=== PATIENT | female | born 1970 | race Caucasian/White ===

== ENCOUNTER 2017-06-24 09:46 | Inpatient (IN) | payer SELFPAY ==
[2017-06-24] MEDS: ONDANSETRON PF 4 MG/2 ML VIAL. IV (10:30)
[2017-06-24] MEDS: IV NORMAL SALINE 1000ML BAG 1,000 ML IV ×2 (10:30→12:48)
[2017-06-24 10:37] LABS: BASO % 0 % (0-3); EOS % 0 % (0-3); HEMATOCRIT 45.2 % (36.0-47.0); HEMOGLOBIN 15.3 g/dL (12.0-15.5); LYMPH # 0.6 x10^3/uL (1.0-4.8); LYMPH % 6 % (24-48); MEAN CORPUSCULAR HEMOGLOBIN 34 pg (25-35); MEAN CORPUSCULAR HGB CONC 34 g/dL (31-37); MEAN CORPUSCULAR VOLUME 100 fL (79-100); MONO # 0.8 x10^3/uL (0.0-1.1); MONO % 8 % (0-9); NEUT # 8.3 x10^3uL (1.8-7.7); NEUT % 85 % (31-73); PLATELET COUNT 189 x10^3/uL (140-400); RED CELL DISTRIBUTION WIDTH 12.9 % (11.5-14.5); WHITE BLOOD COUNT 9.7 x10^3/uL (4.0-11.0)
[2017-06-24 10:44] LABS: ANION GAP 32 (6-14); BLOOD UREA NITROGEN 9 mg/dL (7-20); BUN/CREATININE RATIO 10 (6-20); CALCIUM 9.2 mg/dL (8.5-10.1); CARBON DIOXIDE 16 mmol/L (21-32); CHLORIDE 92 mmol/L (98-107); CREATININE 0.9 mg/dL (0.6-1.0); GFR 67.4; GLUCOSE 122 mg/dL (70-99); SODIUM 140 mmol/L (136-145)
[2017-06-24 10:45] LABS: ADD MAN DIFF? YES
[2017-06-24 10:53] LABS: ALBUMIN 4.4 g/dL (3.4-5.0); ALBUMIN/GLOBULIN RATIO 1.2 (1.0-1.7); ALK PHOS 108 U/L (46-116); ALT (SGPT) 173 U/L (14-59); AST (SGOT) 102 U/L (15-37); LIPASE 141 U/L (73-393); TOTAL BILIRUBIN 0.9 mg/dL (0.2-1.0); TOTAL PROTEIN 8.2 g/dL (6.4-8.2)
[2017-06-24 10:56] LABS: TROPONINI < 0.017 ng/mL (0.000-0.055)
[2017-06-24] MEDS ORDERED: ONDANSETRON PF 4 MG/2 ML VIAL. IV ×2 (11:45→15:15)
[2017-06-24] MEDS ORDERED: ACETAMINOPHEN 325 MG TABLET. PO (11:45)
[2017-06-24] MEDS ORDERED: MORPHINE SULFATE 4 MG/ML DISP.SYRIN. IV ×2 (12:30→15:15)
[2017-06-24 12:48] LABS: % ATYL 1 % (0-0); % BANDS 2 % (0-9); % LYMPHS 4 % (24-48); % MONOS 3 % (0-10); % SEGS 90 % (35-66); PLT ESTIMATE ADEQUATE (ADEQUATE)
[2017-06-24] MEDS: diphenhydrAMINE 50 MG/ML VIAL IVP ×3 (12:48→21:08)
[2017-06-24 13:00] LABS: BILIRUBIN,URINE NEGATIVE (NEG); CLARITY,URINE CLEAR; COLOR,URINE YELLOW; GLUCOSE,URINE NEGATIVE (NEG); NITRITE,URINE NEGATIVE (NEG); PROTEIN,URINE NEGATIVE (NEG-TRACE); UROBILINOGEN,URINE 0.2 mg/dL (0.2 mg/dL)
[2017-06-24 13:26] LABS: BACTERIA,URINE FEW /HPF (0-FEW); RBC,URINE 0 /HPF (0-2); SQUAMOUS EPITHELIAL CELL,UR MOD /LPF; WBC,URINE 0 /HPF (0-4)
[2017-06-24] MEDS: IV RINGERS,LACTATED 1000ML 1,000 ML IV ×3 (14:42→21:08)
[2017-06-24] MEDS ORDERED: PROCHLORPERAZINE 10 MG/2 ML VIAL. IV (15:15)
[2017-06-24] MEDS ORDERED: LIDOCAINE 1% PF 2 ML VIAL. ID (15:15)
[2017-06-24] MEDS ORDERED: fentaNYL PF VIAL 100 MCG/2 ML VIAL IV ×2 (15:15)
[2017-06-24] MEDS ORDERED: PROPOFOL 0 ML IV (15:49)
[2017-06-24] MEDS ORDERED: LIDOCAINE 2% PF Vial for OR 5 ML VIAL. (15:49)
[2017-06-24] MEDS ORDERED: PROPOFOL 20 ML IV ×2 (16:05→16:10)
[2017-06-24] MEDS: ACETAMINOPHEN 650 MG/20.3 ML SOLUTION. PO (17:15)
[2017-06-24] MEDS: SUCRALFATE 1 GM/10 ML ORAL.SUSP. PO ×2 (17:16→21:07)
[2017-06-24] MEDS: LIDO:MAALOX 1:1 20 ML SINGLE DOSE. PO ×2 (17:16→23:17)
[2017-06-24] MEDS: PANTOPRAZOLE IV PUSH 40 MG VIAL. IVP (17:27)
[2017-06-25 04:26] LABS: ADD MAN DIFF? NO
[2017-06-25 04:45] LABS: BASO % 0 % (0-3); EOS % 0 % (0-3); HEMATOCRIT 35.9 % (36.0-47.0); HEMOGLOBIN 12.4 g/dL (12.0-15.5); LYMPH # 1.6 x10^3/uL (1.0-4.8); LYMPH % 26 % (24-48); MEAN CORPUSCULAR HEMOGLOBIN 35 pg (25-35); MEAN CORPUSCULAR HGB CONC 35 g/dL (31-37); MEAN CORPUSCULAR VOLUME 101 fL (79-100); MONO # 1.1 x10^3/uL (0.0-1.1); MONO % 18 % (0-9); NEUT # 3.3 x10^3uL (1.8-7.7); NEUT % 55 % (31-73); PLATELET COUNT 135 x10^3/uL (140-400); RED BLOOD COUNT 3.56 x10^6/uL (3.50-5.40); RED CELL DISTRIBUTION WIDTH 13.2 % (11.5-14.5); WHITE BLOOD COUNT 5.9 x10^3/uL (4.0-11.0)
[2017-06-25 05:08] LABS: LIPASE 196 U/L (73-393)
[2017-06-25 05:11] LABS: ANION GAP 7 (6-14); BLOOD UREA NITROGEN 10 mg/dL (7-20); CALCIUM 8.5 mg/dL (8.5-10.1); CARBON DIOXIDE 29 mmol/L (21-32); CHLORIDE 101 mmol/L (98-107); CREATININE 0.7 mg/dL (0.6-1.0); GFR 90.1; GLUCOSE 68 mg/dL (70-99); POTASSIUM 3.6 mmol/L (3.5-5.1); SODIUM 137 mmol/L (136-145)
[2017-06-25 05:19] LABS: ALBUMIN 3.3 g/dL (3.4-5.0); ALK PHOS 76 U/L (46-116); ALT (SGPT) 107 U/L (14-59); AST (SGOT) 58 U/L (15-37); DIRECT BILIRUBIN 0.5 mg/dL (0.0-0.2); TOTAL BILIRUBIN 1.2 mg/dL (0.2-1.0); TOTAL PROTEIN 6.1 g/dL (6.4-8.2)
[2017-06-25] MEDS: SUCRALFATE 1 GM/10 ML ORAL.SUSP. PO ×4 (05:42→20:32)
[2017-06-25] MEDS: LIDO:MAALOX 1:1 20 ML SINGLE DOSE. PO ×2 (05:43→11:27)
[2017-06-25] MEDS: PANTOPRAZOLE IV PUSH 40 MG VIAL. IVP ×2 (05:43→17:32)
[2017-06-25] MEDS: diphenhydrAMINE 50 MG/ML VIAL IVP ×2 (09:54→21:44)
[2017-06-25] MEDS ORDERED: ACETAMINOPHEN 160 MG/5 ML ORAL.SUSP. PO (11:15)
[2017-06-25] MEDS ORDERED: ACETAMINOPHEN 650 MG/20.3 ML SOLUTION. PO (11:15)
[2017-06-25] MEDS: ACETAMINOPHEN 650 MG/20.3 ML SOLUTION. PO ×2 (11:27→20:31)
[2017-06-25] MEDS: methylPREDNISolone SOD SUCC PF 125 MG/2 ML VIAL. IV (11:27)
[2017-06-25] MEDS: ENALAPRILAT 1.25 MG/ML VIAL. IV (20:31)
[2017-06-26 05:16] LABS: HEMATOCRIT 35.3 % (36.0-47.0); HEMOGLOBIN 12.2 g/dL (12.0-15.5); MEAN CORPUSCULAR HEMOGLOBIN 35 pg (25-35); MEAN CORPUSCULAR HGB CONC 35 g/dL (31-37); MEAN CORPUSCULAR VOLUME 101 fL (79-100); PLATELET COUNT 124 x10^3/uL (140-400); RED CELL DISTRIBUTION WIDTH 12.7 % (11.5-14.5)
[2017-06-26 05:34] LABS: ALBUMIN 3.1 g/dL (3.4-5.0); ALK PHOS 86 U/L (46-116); ALT (SGPT) 118 U/L (14-59); ANION GAP 8 (6-14); AST (SGOT) 142 U/L (15-37); BLOOD UREA NITROGEN 6 mg/dL (7-20); BUN/CREATININE RATIO 10 (6-20); CALCIUM 8.8 mg/dL (8.5-10.1); CARBON DIOXIDE 28 mmol/L (21-32); CHLORIDE 102 mmol/L (98-107); CREATININE 0.6 mg/dL (0.6-1.0); GFR 107.6; GLUCOSE 127 mg/dL (70-99); POTASSIUM 3.3 mmol/L (3.5-5.1); SODIUM 138 mmol/L (136-145); TOTAL BILIRUBIN 0.9 mg/dL (0.2-1.0); TOTAL PROTEIN 6.1 g/dL (6.4-8.2)
[2017-06-26] MEDS: PANTOPRAZOLE IV PUSH 40 MG VIAL. IVP (06:36)
[2017-06-26] MEDS: ENALAPRILAT 1.25 MG/ML VIAL. IV ×3 (06:37→11:39)
[2017-06-26] MEDS: SUCRALFATE 1 GM/10 ML ORAL.SUSP. PO ×2 (07:56→11:37)
[2017-06-26] MEDS: POTASSIUM CHLORIDE 20 MEQ TABLET.ER. PO (09:40)
[2017-06-28 14:31] LABS: C 1 ESTERASE INHIBIT 30 mg/dL (21-39)
== END 2017-06-26 14:40 | disposition home or self-care (01) | DRG 382 ==
LOC: ER 09:46 → 4 NORTH 10:55
PROC: 0D758ZZ Dilation of Esophagus, Via Natural or Artificial Opening Endoscopic (ICD-10-PCS; principal; 2017-06-24 15:30)
DX: K22.10 Ulcer of esophagus without bleeding (principal); K76.0 Fatty (change of) liver, not elsewhere classified; K22.2 Esophageal obstruction; R13.10 Dysphagia, unspecified; E86.0 Dehydration; K21.0 Gastro-esophageal reflux disease with esophagitis; K29.70 Gastritis, unspecified, without bleeding; F41.9 Anxiety disorder, unspecified; I10 Essential (primary) hypertension; K44.9 Diaphragmatic hernia without obstruction or gangrene; Z79.899 Other long term (current) drug therapy; Z82.49 Family history of ischemic heart disease and other diseases of the circulatory system; Z87.19 Personal history of other diseases of the digestive system
CPT/HCPCS: 36415; 71045; 76700; 80048; 80053; 80076; 81001; 83690; 84484; 85007; 85025; 85027; 86161; 93005; 96374; 99285; 99285-25; C9113; J1200; J2060; J2405; J2704; J2930; J7030; J7120

== ENCOUNTER 2018-03-29 08:43 | Emergency (ER) | payer SELFPAY ==
[~2018-03-29] VITALS: Ht 162.6 cm; Wt 49.9 kg
[~2018-03-29 08:43] MED LIST: METO-239 PO; OMEP20TA63 PO; SUCR1ORA5 PO
[2018-03-29 09:27] LABS: BASO % 0 % (0-3); EOS # 0.1 x10^3/uL (0.0-0.7); EOS % 2 % (0-3); HEMATOCRIT 42.1 % (36.0-47.0); HEMOGLOBIN 14.3 g/dL (12.0-15.5); LYMPH # 1.2 x10^3/uL (1.0-4.8); LYMPH % 24 % (24-48); MEAN CORPUSCULAR HEMOGLOBIN 34 pg (25-35); MEAN CORPUSCULAR HGB CONC 34 g/dL (31-37); MEAN CORPUSCULAR VOLUME 101 fL (79-100); MONO # 0.7 x10^3/uL (0.0-1.1); MONO % 14 % (0-9); NEUT % 60 % (31-73); PLATELET COUNT 154 x10^3/uL (140-400); RED BLOOD COUNT 4.16 x10^6/uL (3.50-5.40); RED CELL DISTRIBUTION WIDTH 12.8 % (11.5-14.5); WHITE BLOOD COUNT 5.1 x10^3/uL (4.0-11.0)
[2018-03-29] MEDS ORDERED: cloNIDine HCL 0.1 MG TABLET PO ONE (09:30)
[2018-03-29 09:42] LABS: CALCIUM 8.9 mg/dL (8.5-10.1); CREATININE 0.6 mg/dL (0.6-1.0); GFR 107.2; POTASSIUM 3.8 mmol/L (3.5-5.1)
[2018-03-29] MEDS ORDERED: LABETALOL 20 MG/4 ML DISP.SYRIN. IVP ONE (10:15)
[2018-03-29] MEDS ORDERED: ONDANSETRON PF 4 MG/2 ML VIAL. IV ONE (10:45)
[2018-03-29 11:12] VITALS: BP 100/63
[2018-03-29 11:15] LABS: BILIRUBIN,URINE NEGATIVE (NEG); CLARITY,URINE CLEAR; COLOR,URINE YELLOW; NITRITE,URINE NEGATIVE (NEG); PROTEIN,URINE NEGATIVE (NEG-TRACE)
[2018-03-29 11:21] LABS: SQUAMOUS EPITHELIAL CELL,UR MOD /LPF
[2018-03-29 11:22] LABS: BACTERIA,URINE MODERATE /HPF (0-FEW); BARBITURATES NEG (NEG); BENZODIAZEPINES NEG (NEG); CANNABINOIDS NEG (NEG); COCAINE NEG (NEG); METHADONE NEG (NEG); OPIATES NEG (NEG); PHENCYCLIDINE NEG (NEG); RBC,URINE OCC /HPF (0-2)
[2018-03-29 11:27] LABS: AMPHETAMINE/METHAMPHETAMINE NEG (NEG)
--- NOTE | 2018-03-29 11:32 | PHYS DOC ---
Past Medical History Past Medical History: GERD, Hypertension Additional Past Medical Histor: hiatal hernia and ulcer and esophageal stricture Past Surgical History: No Surgical History Alcohol Use: Occasionally Drug Use: None Adult General Chief Complaint Chief Complaint: NOSEBLEED HPI HPI Patient is a 47 year old emailed with history of hiatal hernia, GERD, and hypertension who presents from her PCPs office for ports of intermittent nosebleed for the past 3 days, dizziness, and elevated blood pressure. Nosebleed resolved prior to ED arrival. Patient is not on aspirin or anticoagulation therapy. Patient's blood pressure prior to her ED arrival was 180s over 120s. The patient's blood pressure remains elevated in the emergency department. Patient states she is compliant with blood pressure medication but does not recall name or dose medications. She was last prescribed medication from this facility a months ago and is unaware of her baseline blood pressure and has not seen her doctor for this complaint. Denies blurred vision, chest pain, shortness breath, extremity weakness or loss of sensation, decreased urinary output. No increased leg swelling. No other acute symptoms or complaints [] Review of Systems Review of Systems Review symptoms as per history of present illness. All other review symptoms are negative. All other systems were reviewed and found to be within normal limits, except as documented in this note. Current Medications Current Medications Current Medications Medications (Trade) Dose Ordered Sig/Abbi Start Time Stop Time Status Last Admin Dose Admin Clonidine HCl (Catapres) 0.2 mg 1X ONCE 03/29/18 09:30 03/29/18 09:31 DC 03/29/18 09:30 0.2 MG Labetalol HCl (Normodyne Iv Push) 20 mg 1X ONCE 03/29/18 10:15 03/29/18 10:16 DC 03/29/18 10:17 20 MG Ondansetron HCl (Zofran) 4 mg 1X ONCE 03/29/18 10:45 03/29/18 10:46 DC 03/29/18 10:36 4 MG Allergies Allergies Allergies Coded Allergies Type Severity Reaction Last Updated Verified No Known Drug Allergies 06/24/17 No Physical Exam Physical Exam Constitutional: Well developed, well nourished, no acute distress, non-toxic appearance. [] HENT: Normocephalic, atraumatic, bilateral external ears normal, oropharynx moist, no oral exudates, nose, no epistaxis. [] Eyes: PERRLA, EOMI, conjunctiva normal, no discharge. [] Neck: Normal range of motion. [] Cardiovascular:Heart rate regular rhythm, no murmur [] Lungs & Thorax: Bilateral breath sounds clear to auscultation [] Abdomen: Bowel sounds normal, soft, no tenderness, no masses, no pulsatile masses. [] Skin: Warm, dry, no erythema, no rash. [] Back: No tenderness. [] Extremities: No tenderness, no cyanosis, no clubbing, ROM intact, no edema. [] Neurologic: Alert and oriented X 3, normal motor function, normal sensory function, no focal deficits noted. [] Psychologic: Affect normal, judgement normal, mood normal. [] Current Patient Data Vital Signs Vital Signs Date Time Temp Pulse Resp B/P (MAP) Pulse Ox O2 Delivery O2 Flow Rate FiO2 03/29/18 11:12 100/63 (75) 03/29/18 10:38 77 03/29/18 08:57 98.6 16 97 Room Air 98.6 Lab Values Laboratory Tests Test 03/29/18 09:20 03/29/18 11:10 White Blood Count 5.1 x10^3/uL (4.0-11.0) Red Blood Count 4.16 x10^6/uL (3.50-5.40) Hemoglobin 14.3 g/dL (12.0-15.5) Hematocrit 42.1 % (36.0-47.0) Mean Corpuscular Volume 101 fL (79-100) H Mean Corpuscular Hemoglobin 34 pg (25-35) Mean Corpuscular Hemoglobin Concent 34 g/dL (31-37) Red Cell Distribution Width 12.8 % (11.5-14.5) Platelet Count 154 x10^3/uL (140-400) Neutrophils (%) (Auto) 60 % (31-73) Lymphocytes (%) (Auto) 24 % (24-48) Monocytes (%) (Auto) 14 % (0-9) H Eosinophils (%) (Auto) 2 % (0-3) Basophils (%) (Auto) 0 % (0-3) Neutrophils # (Auto) 3.0 x10^3uL (1.8-7.7) Lymphocytes # (Auto) 1.2 x10^3/uL (1.0-4.8) Monocytes # (Auto) 0.7 x10^3/uL (0.0-1.1) Eosinophils # (Auto) 0.1 x10^3/uL (0.0-0.7) Basophils # (Auto) 0.0 x10^3/uL (0.0-0.2) Sodium Level 138 mmol/L (136-145) Potassium Level 3.8 mmol/L (3.5-5.1) Chloride Level 99 mmol/L (98-107) Carbon Dioxide Level 26 mmol/L (21-32) Anion Gap 13 (6-14) Blood Urea Nitrogen 8 mg/dL (7-20) Creatinine 0.6 mg/dL (0.6-1.0) Estimated GFR (Cockcroft-Gault) 107.2 Glucose Level 97 mg/dL (70-99) Calcium Level 8.9 mg/dL (8.5-10.1) Urine Collection Type Unknown Urine Color Yellow Urine Clarity Clear Urine pH 6.0 Urine Specific Bells 1.020 Urine Protein Negative mg/dL (NEG-TRACE) Urine Glucose (UA) Negative mg/dL (NEG) Urine Ketones (Stick) Negative mg/dL (NEG) Urine Blood Negative (NEG) Urine Nitrite Negative (NEG) Urine Bilirubin Negative (NEG) Urine Urobilinogen Dipstick 1.0 mg/dL (0.2 mg/dL) Urine Leukocyte Esterase Small (NEG) Urine RBC Occ /HPF (0-2) Urine WBC 5-10 /HPF (0-4) Urine Squamous Epithelial Cells Mod /LPF Urine Bacteria Moderate /HPF (0-FEW) Urine Mucus Slight /LPF Urine Opiates Screen Neg (NEG) Urine Methadone Screen Neg (NEG) Urine Barbiturates Neg (NEG) Urine Phencyclidine Screen Neg (NEG) Urine Amphetamine/Methamphetamine Neg (NEG) Urine Benzodiazepines Screen Neg (NEG) Urine Cocaine Screen Neg (NEG) Urine Cannabinoids Screen Neg (NEG) Urine Ethyl Alcohol Pos (NEG) Laboratory Tests 03/29/18 09:20 Laboratory Tests 03/29/18 09:20 EKG EKG ] Radiology/Procedures Radiology/Procedures [] Course & Med Decision Making Course & Med Decision Making Pertinent Labs and Imaging studies reviewed. (See chart for details) [Bleeding resolved prior to ED arrival. Initially, blood pressure remained elevated 180s over 110s. Clonidine given with limited effect. Patient then received 20 mg of IV labetalol and experienced a brief self-limited hypotensive episode associated with nausea without vomiting. No loss of consciousness. Patient was monitored her until blood pressure improved she felt well. Patient will be discharged home with instructions to contact her PCP today for further structures and management of blood pressure. Dragon Disclaimer Dragon Disclaimer This electronic medical record was generated, in whole or in part, using a voice recognition dictation system. Departure Departure Impression: Primary Impression: Accelerated hypertension Disposition: 01 HOME, SELF-CARE Condition: GOOD Referrals: DEEPA THOMAS DIETARY AIDE TEACHER (PCP) Patient Instructions: Hypertension, [id number] Additional Instructions: Please check and record daily blood pressures. Call your PCP today for further instructions and management of blood pressure. Use Afrin nasal spray as needed for treatment of nosebleed. LUKE LIGHT DO Mar 29, 2018 11:32
== END 2018-03-29 12:17 | disposition home or self-care (01) ==
LOC: ER 08:43
DX: I10 Essential (primary) hypertension (principal); K21.9 Gastro-esophageal reflux disease without esophagitis
CPT/HCPCS: 36415; 80048; 80307; 81001; 85025; 87086; 96374; 96375; 99283; J2405; J3490

== ENCOUNTER 2020-05-21 05:25 | Emergency (ER) | payer OTHER ==
[~2020-05-21] VITALS: Ht 162.6 cm; Wt 50.0 kg
[2020-05-21] MEDS ORDERED: OXYMETAZOLINE 0.05% NASAL SPRAY 30ML BOTTLE. NS ONE (06:00)
[2020-05-21] MEDS ORDERED: cloNIDine HCL 0.1 MG TABLET PO ONE (06:00)
--- NOTE | 2020-05-21 06:11 | PHYS DOC ---
Past Medical History Past Medical History: GERD, Hypertension Additional Past Medical Histor: hiatal hernia and ulcer and esophageal stricture Past Medical History Eosinophilic esophagitis, Gomez's esophagus (DEMI MORRISSEY DO) Past Surgical History: No Surgical History (DEMI MORRISSEY DO) Smoking Status: Never Smoker Alcohol Use: Heavy Drug Use: None (DEMI MORRISSEY DO) General Adult EDM: Chief Complaint: NOSEBLEED HPI: HPI: 49-year-old female presents with report of left-sided epistaxis patient since 29. Patient reports history of frequent nosebleeds. Patient also reports history of hypertension. Patient reports she was also recently seen at urgent care who adjusted some of her blood pressure medications. Denies trauma. Denies dizziness or lightheadedness. Denies use of blood thinners. (DEMI MORRISSEY DO) Review of Systems: Review of Systems: Constitutional: Denies fever or chills Eyes: Denies redness or eye pain HENT: Reports epistaxis Respiratory: Denies cough or shortness of breath Cardiovascular: Denies chest pain or palpitations GI: Denies abdominal pain, nausea, or vomiting : Denies dysuria or hematuria Musculoskeletal: Denies back pain or joint pain Integument: Denies rash or skin lesions Neurologic: Denies headache, dizziness or lightheadedness Complete systems were reviewed and found to be within normal limits, except as documented in this note. (DEMI MORRISSEY DO) Heart Score: C/O Chest Pain: N/A (DEMI MORRISSEY DO) C/O Chest Pain: N/A (JANELLE HORTON DO) Current Medications: Current Medications Medications (Trade) Dose Ordered Sig/Abbi Start Time Stop Time Status Last Admin Dose Admin Clonidine HCl (Catapres) 0.1 mg 1X ONCE 05/21/20 06:00 05/21/20 06:01 DC Oxymetazoline HCl (Afrin) 2 spray 1X ONCE 05/21/20 06:00 05/21/20 06:01 DC (DEMI MORRISSEY DO) Allergies: Allergies: Allergies Coded Allergies Type Severity Reaction Last Updated Verified No Known Drug Allergies 06/24/17 No (DEMI MORRISSEY DO) Physical Exam: PE: Constitutional: Well developed, well nourished, no acute distress, non-toxic appearance HENT: Normocephalic, atraumatic, acute epistaxis from left nare Eyes: Conjunctiva normal, no discharge Neck: Normal range of motion, supple Lungs & Thorax: No respiratory distress, equal chest rise and fall Skin: Warm, dry, no erythema, no rash Extremities: No tenderness, ROM intact, no edema Neurologic: Alert and oriented X 3, no focal deficits noted Psychologic: Affect normal, judgment normal (DEMI MORRISSEY DO) Current Patient Data: Vital Signs: Vital Signs Date Time Temp Pulse Resp B/P (MAP) Pulse Ox O2 Delivery O2 Flow Rate FiO2 05/21/20 05:45 97.9 111 20 169/118 (135) 94 Room Air 97.9 (DEMI MORRISSEY DO) EKG: EKG: [] (DEMI MORRISSEY DO) Radiology/Procedures: Radiology/Procedures: [] (DEMI MORRISSEY DO) Course & Med Decision Making: Course & Med Decision Making Patient with frequent nosebleeds presents with uncontrollable nosebleed since 0030 this morning. Denies use of blood thinners. Hypertension noted. Clonidine 0.1 mg p.o. provided. Afrin utilized with nasal clamp. Signout given to Dr. Horton for further evaluation and final disposition. If patient with resolution of epistaxis, patient will be sent home with clonidine as needed and instructions to follow closely with her PCP for further adjustment of her blood pressure medication. Discussed current findings and plan with patient and family, who acknowledge understanding and agreement. (DEMI MORRISSEY DO) Course & Med Decision Making Patient blood pressure improved, no longer had any bleeding from her nares.. Patient was discharged home in stable condition (JANELLE HORTON DO) Dragon Disclaimer: Eleuterio Disclaimer: This electronic medical record was generated, in whole or in part, using a voice recognition dictation system. (DEMI MORRISSEY DO) Departure Departure Impression: Primary Impression: Epistaxis Additional Impression: Hypertension Qualified Codes: I10 - Essential (primary) hypertension Disposition: 01 DC HOME SELF CARE/HOMELESS Condition: IMPROVED Referrals: DEEPA THOMAS HOTEL CUSTODIAN (PCP) Patient Instructions: Hypertension, [id number], Nosebleed, [id number] Additional Instructions: For further bleeding. Clear nostril of any blood clots. Use Afrin 2 sprays to each nostril and apply nasal clamp for 15 mins. Remove clamp. If bleeding continues then repeat x 2 rounds. Each round with 2 sprays of Afrin to each nostril and clamp for 15 mins. If after total of 6 sprays to each nostril and 45mins of nasal clamping, if bleeding continues please present to ED. USE humidifier at night when you are sleeping.l Scripts Clonidine Hcl (CLONIDINE HCL) 0.1 Mg Tablet 0.1 MG PO BID PRN for ELEVATED BP, SEE COMMENTS, #14 TAB Take for systolic (upper blood pressure) greater than 175 and/or diastolic (lower blood pressure) greather than 105. Prov: DEMI MORRISSEY DO 05/21/20 DEMI MORRISSEY DO May 21, 2020 06:11 JANELLE HORTON DO May 21, 2020 07:10
[2020-05-21] MEDS ORDERED: CLON0.1T PO (06:27)
[2020-05-21 07:08] VITALS: BP 152/101
== END 2020-05-21 07:15 | disposition home or self-care (01) ==
LOC: ER 05:25
DX: R04.0 Epistaxis (principal); I10 Essential (primary) hypertension; K21.9 Gastro-esophageal reflux disease without esophagitis; Z98.890 Other specified postprocedural states; F10.10 Alcohol abuse, uncomplicated
CPT/HCPCS: 99283

== ENCOUNTER → 2020-12-08 | Outpatient (CLI) | payer OTHER ==
[2020-08-25 11:00] VITALS: BP 119/86
[~2020-12-08] MED LIST changes: +ASPI1TAB31 PO; +CLON0.1T PO; +PANT40TA77 PO; +RABE20TA18 PO
--- NOTE | 2020-12-08 10:36 | KCIC ---
EXAMINATION: CT MAXILLOFACIAL WITHOUT CONTRAST CLINICAL HISTORY: DEVIATED SEPTUM, CHRONIC SINUSITIS. Congestion, seasonal allergies. Technique: Spiral high resolution axial unenhanced images were obtained through the paranasal sinuses with sagittal and coronal planar reconstructions. CT Dose Reduction Employed: One or more of the following individualized dose reduction techniques wer e utilized for this examination: 1. Automated exposure control 2. Adjustment of the mA and/or kV ac cording to patient size 3. Use of iterative reconstruction technique. COMPARISON: None FINDINGS: Soft Tissues: No significant superficial soft tissue swelling. Facial Bones: No evidence of acute fracture or destructive osseous lesion. Orbits: No evidence of acute orbital fracture. Globes are intact. Soft tissue planes of the orbits ma intained. Paranasal Sinuses: Paranasal sinuses and mastoids clear. Other: Nasal mucosal thickening. Slight nasal septal deviation to the left. IMPRESSION: Nasal mucosal thickening with clear paranasal sinuses. Slight nasal septal deviation to the left. Electronically signed by: Mikel Roberson DO (12/08/2020 10:33 AM) MALINI
== END ==
LOC: KCIC CT 09:49
PROVIDERS: ATTEND Family Medicine
DX: J34.2 Deviated nasal septum (principal); J32.0 Chronic maxillary sinusitis
CPT/HCPCS: 70486

== ENCOUNTER 2021-01-21 06:11 | Observation (INO) | payer OTHER ==
[~2021-01-21] VITALS: Ht 165.1 cm; Wt 50.3 kg
[~2021-01-21 06:11] MED LIST changes: +HYDROmorphone 2 MG/ML VIAL IVP PRN; +MULT-121 PO; +MULT-684 PO; +OMEP20CA16 PO; +PROCHLORPERAZINE 10 MG/2 ML VIAL. IVP PRN; +ceFAZolin SODIUM IV Push 1 GM VIAL. IVP PRN; +fentaNYL PF VIAL 100 MCG/2 ML VIAL IVP PRN
[2021-01-21] MEDS ORDERED: PROPOFOL 10 MG/ML (20ML) VIAL. IV ONE (06:23)
[2021-01-21] MEDS ORDERED: LIDOCAINE 2% PF 5 ML VIAL. ONE (06:23)
[2021-01-21] MEDS ORDERED: ONDANSETRON PF 4 MG/2 ML VIAL. ONE (06:23)
[2021-01-21] MEDS ORDERED: DEXAMETHASONE SOD PHOS 4 MG/ML VIAL ONE (06:23)
[2021-01-21] MEDS ORDERED: ROCURONIUM 50 MG/5 ML VIAL. ONE ×3 (06:25→09:18)
[2021-01-21 06:48] VITALS: BP 137/89
[2021-01-21] MEDS: IV RINGERS,LACTATED 1000ML 1,000 ML IV SCH ×2 (06:56→11:06)
[2021-01-21] MEDS ORDERED: MIDAZOLAM HCL/PF 2 MG/2 ML VIAL. ONE (07:05)
[2021-01-21] MEDS ORDERED: fentaNYL PF VIAL 100 MCG/2 ML VIAL ONE (07:05)
[2021-01-21] MEDS ORDERED: SURGICEL HEMOSTAT 4X8 EACH. ONE (07:05)
[2021-01-21] MEDS ORDERED: BUPIVACAINE-EPI 0.5% 30 ML VIAL KIT. ONE (07:05)
[2021-01-21] MEDS ORDERED: GLYCOPYRROLATE 1 MG/5 ML VIAL. ONE (07:06)
[2021-01-21] MEDS ORDERED: NEOSTIGMINE METHYLSULFATE 5 MG/5 ML SYRINGE. ONE (07:06)
[2021-01-21] MEDS ORDERED: diphenhydrAMINE 50 MG/ML VIAL ONE (08:22)
[2021-01-21] MEDS ORDERED: ePHEDrine PF IN SALINE 50 MG/10 ML SYRINGE. IV ONE (08:22)
[2021-01-21] MEDS ORDERED: HYDROmorphone 2 MG/ML VIAL ONE (08:35)
[2021-01-21] MEDS ORDERED: KETAMINE HCL IN NACL, ISO-OSM 50 MG/5 ML SYRINGE ONE (08:36)
[2021-01-21] MEDS ORDERED: PHENYLEPHRINE in 0.9% NACL PF 1 MG/10 ML SYRINGE. IV ONE (09:13)
[2021-01-21] MEDS ORDERED: SEVOFLURANE 61 TO 120 MINUTES. IH ONE (09:14)
--- NOTE | 2021-01-21 10:47 | PDOC4 ---
Operative Note Operative Note Operative Note Preoperative Diagnosis: Large hiatal hernia with gastroesophageal reflux disease Postoperative Diagnosis: Same Procedure: Laparoscopic repair of large hiatal hernia with Apollo fundoplication and gastropexy Surgeon: Nilesh Phelps.: Dr. Kidd, JESUS Mayorga, Rohan Avalos MS4 Anesthesia: Gen. Estimated Blood Loss: 30 mL Specimen: None Drains: None Complications: None Indications: The patient is a 50-year-old female with a longstanding history of significant gastroesophageal reflux disease. Her evaluation is also shown a large hiatal hernia. She was referred for surgical repair of the hernia and an antireflux procedure. The risks of surgery were discussed which include bleeding, infection, recurrent herniation, gastric or esophageal perforation, visceral injury, recurrent reflux, gas bloat syndrome, dysphasia, potential need for additional surgeries or procedures. She understands and would like to proceed. Description: The patient was taken to the operating room and placed supine on the operating table. General anesthesia was performed. The patient was then placed in lithotomy. The abdomen was prepped with ChloraPrep and draped in a standard surgical fashion. A small incision was made superior to and to the patient's left of the umbilicus through which a visualized 5 mm trocar was inserted. A pneumoperitoneum was then created and the laparoscope was introduced. In the right lateral abdomen a 12 mm trocar was inserted through which a soft fan retractor was used to elevate the left lobe of the liver. In the right upper quadrant a 5 mm trocar was inserted. In the left upper quadrant an 11 mm trocar was inserted while in the left lateral abdomen a 5 mm trocar was inserted. Attention was then directed to the diaphragmatic hiatus. As expected there was a large hiatal hernia defect. We began mobilizing the entire hernia sac within the mediastinum. We started this on the right side and began freeing up the sac from the right anu. The Harmonic scalpel assisted for much of this dissection. We continued mobilizing the sac superiorly well into the mediastinum. We continued this dissection anteriorly freeing up the sac and its attachments in this location. The dissection then continued along the left anu and the sac and attachments were mobilized here as well. Due to the large size and redundancy of the sac considerable time was required in freeing this out of the mediastinum. The gastrocolic omentum was then opened with the Harmonic scalpel in the upper portion of the greater curvature. We then freed up the upper part of the greater curvature and fundus using the harmonic scalpel. Large blood vessels were doubly clipped and divided. The dissection continued all the way back up to the left anu and any remaining splenic attachments were also mobilized. A small Surgicel pack was placed near the spleen to assist with slight oozing. At this point the esophagus was readily visualized and we were able to free up the area around his gastroesophageal junction. A Perham drain was then placed around the esophagus at the GE junction and clips were applied holding the Ana in place. With retraction on the Ana we were able to continue freeing up any remaining sac attachments particularly in the posterior location. At this point the GE junction was well within the abdominal cavity. The left and right anu were then reapproximated with interrupted 2-0 silk sutures using the Endo Stitch device. Stitches were applied both anteriorly and posteriorly allowing for closure of the hernia defect. The fundus was then wrapped around in a 360 fashion creating the fundoplication. A shoeshine maneuver was used to ensure no twists or kinks. An initial 2-0 Ethibond suture was used securing the fundic lips together. Another suture was placed superior to this which incorporated a small bite of the anterior esophagus. An additional suture was then placed inferiorly completing the fundoplication. At this point hemostasis was good, the hernia was well repaired, and the fundoplication was intact with a nice orientation. The wrap was then anchored to the right anu using a 2-0 silk suture. Additional fixation of the stomach was performed on the diaphragm including an area on the wrap and one on the fundus completing the gastropexy. The 11 and 12 mm trochars were then removed and the fascia closed with 0 Vicryl using an Endo Close and infiltrated with half percent Marcaine with epinephrine. The remaining ports were removed and the pneumoperitoneum was relieved. Skin at all incisions was closed with 4-0 Monocryl. Steri-Strips and dressings were applied. The patient tolerated the procedure well. INGRID MICHEL MD Jan 21, 2021 10:47
[2021-01-21] MEDS ORDERED: PROCHLORPERAZINE 10 MG/2 ML VIAL. IV PRN (11:00)
[2021-01-21] MEDS ORDERED: NALOXONE 0.4 MG/ML VIAL. IV PRN (11:00)
[2021-01-21] MEDS ORDERED: 0.9 % SODIUM CHLORIDE 10 ML DISP.SYRIN. IV PRN (11:00)
[2021-01-21] MEDS: IV NORMAL SALINE 1000ML BAG 1,000 ML IV SCH (11:00)
[2021-01-21] MEDS ORDERED: ONDANSETRON PF 4 MG/2 ML VIAL. IVP PRN (11:00)
[2021-01-21] MEDS ORDERED: MORPHINE SULFATE 2 MG/ML INJ. ONE (11:24)
[2021-01-21] MEDS: MORPHINE SULFATE 2 MG/ML INJ. IVP PRN ×2 (11:33→11:52)
[2021-01-21] MEDS: METOPROLOL SUCC 24HR ER 25 MG TAB.ER.24H. PO SCH ×2 (12:00→21:18)
[2021-01-21] MEDS: IV 1/2 NORMAL SALINE 1,000 ML IV SCH (12:29)
[2021-01-21 15:00] VITALS: BP 143/90
[2021-01-21] MEDS: HYDROmorphone 2 MG/ML VIAL IV PRN (16:51)
[2021-01-21 19:00] VITALS: BP 129/78
[2021-01-21 22:52] VITALS: BP 135/94
[2021-01-22] MEDS: HYDROmorphone 2 MG/ML VIAL IV PRN ×5 (00:29→21:27)
[2021-01-22] MEDS: IV 1/2 NORMAL SALINE 1,000 ML IV SCH ×3 (00:33→21:18)
[2021-01-22 03:25] VITALS: BP 129/84
[2021-01-22 07:00] VITALS: BP 156/111
[2021-01-22] MEDS: METOPROLOL SUCC 24HR ER 25 MG TAB.ER.24H. PO SCH ×2 (07:46→21:18)
[2021-01-22] MEDS: MULTIVITAMIN with MINERAL TABLET. PO SCH (08:20)
--- NOTE | 2021-01-22 09:46 | PDOC ---
SURGICAL PROGRESS NOTE DATE: 01/22/21 TIME: 09:45 Subjective Patient complains of some abdominal and shoulder pain is only taking ice chips currently Vital Signs Vital Signs Date Time Temp Pulse Resp B/P (MAP) Pulse Ox O2 Delivery O2 Flow Rate FiO2 01/22/21 08:17 Room Air 01/22/21 07:46 92 156/111 01/22/21 07:00 98.3 16 98 98.3 01/21/21 11:20 10 I&O Intake and Output 01/22/21 07:00 Intake Total 1850 ml Output Total 330 ml Balance 1520 ml Intake Oral 150 ml IV Total 1700 ml Output Urine Total 300 ml Estimated Blood Loss 30 ml # Voids 2 PATIENT HAS A BARRERA: No General: Alert, Oriented X3, Cooperative, mild distress Abdomen: Normal bowel sounds, Soft, Other (Wounds clean dry and intact mild incisional tenderness) Labs Laboratory Tests Test 01/21/21 06:25 Bedside Urine HCG, Qualitative Hcg negative (Negative) Assessment/Plan Status post Apollo fundoplication still having some abdominal pain has not started clear liquids will try that today Justicifation of Admission Dx: Justifications for Admission: Justification of Admission Dx: Yes KAROLINA ANDRADE MD Jan 22, 2021 09:46
[2021-01-22] MEDS: IV NORMAL SALINE 1000ML BAG 1,000 ML IV SCH (10:53)
[2021-01-22 11:00] VITALS: BP 151/112
[2021-01-22 15:00] VITALS: BP 148/101
--- NOTE | 2021-01-22 16:50 | CONS ---
DATE OF CONSULTATION: 01/22/2021 INTERNAL MEDICINE CONSULT CHIEF COMPLAINT: Postop hypertension. HISTORY OF PRESENT ILLNESS: The patient is a pleasant, middle-aged female who underwent a hiatal hernia surgery yesterday. She has been having some postop hypertension. We have been requested for postop medical evaluation and treatment of comorbidities. PAST MEDICAL HISTORY: Hypertension, hypotension, hiatal hernia, status post laparoscopic repair of a large hiatal hernia yesterday with Apollo fundoplication and gastropexy. ALLERGIES: AVOCADOS. FAMILY HISTORY: Diabetes. SOCIAL HISTORY: She does not drink, smoke or take drugs. She is currently not working. MEDICATIONS: She is on metoprolol, omeprazole, Aciphex, and vitamins. REVIEW OF SYSTEMS: GENERAL: No history of weight change, weakness or fevers. SKIN: No bruising, hair changes or rashes. EYES: No blurred, double or loss of vision. NOSE AND THROAT: No history of nosebleeds, hoarseness or sore throat. HEART: No history of palpitations, chest pain or shortness of breath on exertion. LUNGS: Denies cough, hemoptysis, wheezing or shortness of breath. GASTROINTESTINAL: Denies changes in appetite, nausea, vomiting, diarrhea or constipation. GENITOURINARY: No history of frequency, urgency, hesitancy or nocturia. NEUROLOGIC: Denies history of numbness, tingling, tremor or weakness. PSYCHIATRIC: No history of panic, anxiety or depression. ENDOCRINE: No history of heat or cold intolerance, polyuria or polydipsia. EXTREMITIES: Denies muscle weakness, joint pain, pain on walking or stiffness. PHYSICAL EXAMINATION: VITALS: Within normal limits and are stable. GENERAL: No apparent distress. Alert and oriented. HEENT: Normal cephalic atraumatic, external auditory canals are patent. EYES: Extraocular muscles are intact, pupils are equally round and reactive to light and accommodation. MUSCULOSKELETAL: Well developed, well nourished, good range of motion. ENDOCRINE: No thyromegaly was palpated, LYMPHATICS: No cervical chain or axillary nodes were noted. HEMATOPOIETIC: No bruising. NECK: Supple, no JVD, no thyromegaly was noted. LUNGS: Clear to auscultation in all lung melendez without rhonchi or wheezing. HEART: RRR, S1, S2 present. Peripheral pulses intact, no obvious murmurs were noted. ABDOMEN: She has clean, dry, intact dressing. EXTREMITIES: Without any cyanosis, clubbing, or edema. Pedal pulses intact, Homans sign is negative. NEUROLOGIC: Normal speech, normal tone. A and O x 3, moves all extremities, no obvious focal deficits. PSYCHIATRIC: Normal affect, normal mood. Stable. SKIN: No ulcerations or rashes, good skin turgor, no jaundice. VASCULAR: Good capillary refill, neurovascular bundle appears to be intact. LABORATORY DATA: Pending. Her urine test was negative. ASSESSMENT AND PLAN: Postoperative hypertension. I have ordered Norvasc 5 mg p.o. every day. Continue her metoprolol and she is getting metoprolol 25 mg daily. Continue other medicines. I have ordered a CBC, BMP, wound care. DVT prophylaxis. Full code. Thank you very much for allowing us to participate in the care of this nice lady. DONAVAN/JYOTSNA DR: DONAVAN/serafin TID: [id number] CC: INGRID MICHEL MD
[2021-01-22 19:25] VITALS: BP 163/112
[2021-01-23] VITALS (7 sets, daily range): BP systolic 78–156; BP diastolic 46–105
[2021-01-23] MEDS: HYDROmorphone 2 MG/ML VIAL IV PRN ×3 (07:51→20:49)
[2021-01-23 07:57] LABS: BASO % 0 % (0-3); EOS # 0.1 x10^3/uL (0.0-0.7); EOS % 0 % (0-3); HEMATOCRIT 36.4 % (36.0-47.0); LYMPH # 2.3 x10^3/uL (1.0-4.8); LYMPH % 19 % (24-48); MEAN CORPUSCULAR HEMOGLOBIN 32 pg (25-35); MEAN CORPUSCULAR HGB CONC 33 g/dL (31-37); MEAN CORPUSCULAR VOLUME 97 fL (79-100); MONO # 1.5 x10^3/uL (0.0-1.1); MONO % 12 % (0-9); NEUT # 8.2 x10^3/uL (1.8-7.7); NEUT % 68 % (31-73); PLATELET COUNT 199 x10^3/uL (140-400); RED BLOOD COUNT 3.77 x10^6/uL (3.50-5.40); RED CELL DISTRIBUTION WIDTH 13.4 % (11.5-14.5)
[2021-01-23 08:13] LABS: CALCIUM 7.8 mg/dL (8.5-10.1); CREATININE 0.4 mg/dL (0.6-1.0); POTASSIUM 3.3 mmol/L (3.5-5.1)
[2021-01-23] MEDS: METOPROLOL SUCC 24HR ER 25 MG TAB.ER.24H. PO SCH (09:00)
--- NOTE | 2021-01-23 09:02 | PDOC ---
SURGICAL PROGRESS NOTE DATE: 01/23/21 TIME: 09:01 Subjective Patient still complains of quite a bit of chest pain. Vital Signs Vital Signs Date Time Temp Pulse Resp B/P (MAP) Pulse Ox O2 Delivery O2 Flow Rate FiO2 01/23/21 07:00 98.6 105 18 85/46 (59) 97 Room Air 98.6 I&O Intake and Output 01/23/21 07:00 Intake Total 240 ml Balance 240 ml Intake Oral 240 ml # Voids 4 PATIENT HAS A BARRERA: No General: Alert, Oriented X3, Cooperative, mild distress Abdomen: Normal bowel sounds, Soft, Other (Mild incisional tenderness wounds clean dry and intact) Labs Laboratory Tests Test 01/23/21 06:30 White Blood Count 12.0 x10^3/uL (4.0-11.0) Red Blood Count 3.77 x10^6/uL (3.50-5.40) Hemoglobin 12.0 g/dL (12.0-15.5) Hematocrit 36.4 % (36.0-47.0) Mean Corpuscular Volume 97 fL (79-100) Mean Corpuscular Hemoglobin 32 pg (25-35) Mean Corpuscular Hemoglobin Concent 33 g/dL (31-37) Red Cell Distribution Width 13.4 % (11.5-14.5) Platelet Count 199 x10^3/uL (140-400) Neutrophils (%) (Auto) 68 % (31-73) Lymphocytes (%) (Auto) 19 % (24-48) Monocytes (%) (Auto) 12 % (0-9) Eosinophils (%) (Auto) 0 % (0-3) Basophils (%) (Auto) 0 % (0-3) Neutrophils # (Auto) 8.2 x10^3/uL (1.8-7.7) Lymphocytes # (Auto) 2.3 x10^3/uL (1.0-4.8) Monocytes # (Auto) 1.5 x10^3/uL (0.0-1.1) Eosinophils # (Auto) 0.1 x10^3/uL (0.0-0.7) Basophils # (Auto) 0.0 x10^3/uL (0.0-0.2) Sodium Level 131 mmol/L (136-145) Potassium Level 3.3 mmol/L (3.5-5.1) Chloride Level 96 mmol/L (98-107) Carbon Dioxide Level 25 mmol/L (21-32) Anion Gap 10 (6-14) Blood Urea Nitrogen 6 mg/dL (7-20) Creatinine 0.4 mg/dL (0.6-1.0) Estimated GFR (Cockcroft-Gault) 169.0 Glucose Level 76 mg/dL (70-99) Calcium Level 7.8 mg/dL (8.5-10.1) Laboratory Tests Test 01/23/21 06:30 White Blood Count 12.0 x10^3/uL (4.0-11.0) Red Blood Count 3.77 x10^6/uL (3.50-5.40) Hemoglobin 12.0 g/dL (12.0-15.5) Hematocrit 36.4 % (36.0-47.0) Mean Corpuscular Volume 97 fL (79-100) Mean Corpuscular Hemoglobin 32 pg (25-35) Mean Corpuscular Hemoglobin Concent 33 g/dL (31-37) Red Cell Distribution Width 13.4 % (11.5-14.5) Platelet Count 199 x10^3/uL (140-400) Neutrophils (%) (Auto) 68 % (31-73) Lymphocytes (%) (Auto) 19 % (24-48) Monocytes (%) (Auto) 12 % (0-9) Eosinophils (%) (Auto) 0 % (0-3) Basophils (%) (Auto) 0 % (0-3) Neutrophils # (Auto) 8.2 x10^3/uL (1.8-7.7) Lymphocytes # (Auto) 2.3 x10^3/uL (1.0-4.8) Monocytes # (Auto) 1.5 x10^3/uL (0.0-1.1) Eosinophils # (Auto) 0.1 x10^3/uL (0.0-0.7) Basophils # (Auto) 0.0 x10^3/uL (0.0-0.2) Sodium Level 131 mmol/L (136-145) Potassium Level 3.3 mmol/L (3.5-5.1) Chloride Level 96 mmol/L (98-107) Carbon Dioxide Level 25 mmol/L (21-32) Anion Gap 10 (6-14) Blood Urea Nitrogen 6 mg/dL (7-20) Creatinine 0.4 mg/dL (0.6-1.0) Estimated GFR (Cockcroft-Gault) 169.0 Glucose Level 76 mg/dL (70-99) Calcium Level 7.8 mg/dL (8.5-10.1) Assessment/Plan Patient has been hypertensive consulted internal medicine for evaluation and treatment Tolerating clear liquid diet but still having quite a bit of pain will advance to full liquids hopefully home in the a.m. Justicifation of Admission Dx: Justifications for Admission: Justification of Admission Dx: Yes KAROLINA ANDRADE MD Jan 23, 2021 09:02
[2021-01-23] MEDS: MULTIVITAMIN with MINERAL TABLET. PO SCH (09:17)
--- NOTE | 2021-01-23 09:19 | PDOC ---
[facility] PROGRESS NOTE Date of Service DOS: DATE: 01/23/21 TIME: 09:19 Chief Complaint Chief Complaint Hiatal hernia Barrets esophagus - EGD 04/30/2013 revealed a 9 mm stricture (dilated to 40, then 48 Fr), a medium hiatal hernia, esophageal mucosa c/w eosinophilic esophagitis, Hepatomegaly without evidence of cirrhosis H/o Portal hypertension H/o EtOH abuse - stopped drinking july 2020 FEN - NPO History of Present Illness History of Present Illness Ms Luna is a 50yo female with PMHx HTN and Gomez's esophagus (confirmed on biopsy, negative for dysplasia), who is admitted for GERD treatment surgically. Status post laparoscopic hiatal hernia repair with Apollo fundoplication and gastropexy on 01/21/2021 Consulted medicine for BP management. 01/23: BP low overnight. Still in significant pain when doing his diet. Sodium and potassium low will change fluids to D5 NS with 20 mEq potassium overnight Vitals/I&O Vitals/I&O: Vital Signs Date Time Temp Pulse Resp B/P (MAP) Pulse Ox O2 Delivery O2 Flow Rate FiO2 01/23/21 07:00 98.6 105 18 85/46 (59) 97 Room Air 98.6 I & O 01/22/21 01/22/21 01/23/21 15:00 23:00 07:00 Intake Total 240 ml Balance 240 ml Physical Exam General: Alert, Oriented X3, Cooperative, mild distress Lungs: Clear Abdomen: Normal bowel sounds, Soft, Other (Mild incisional tenderness wounds clean dry and intact) Labs Labs: Laboratory Tests Test 01/23/21 06:30 White Blood Count 12.0 x10^3/uL (4.0-11.0) Red Blood Count 3.77 x10^6/uL (3.50-5.40) Hemoglobin 12.0 g/dL (12.0-15.5) Hematocrit 36.4 % (36.0-47.0) Mean Corpuscular Volume 97 fL (79-100) Mean Corpuscular Hemoglobin 32 pg (25-35) Mean Corpuscular Hemoglobin Concent 33 g/dL (31-37) Red Cell Distribution Width 13.4 % (11.5-14.5) Platelet Count 199 x10^3/uL (140-400) Neutrophils (%) (Auto) 68 % (31-73) Lymphocytes (%) (Auto) 19 % (24-48) Monocytes (%) (Auto) 12 % (0-9) Eosinophils (%) (Auto) 0 % (0-3) Basophils (%) (Auto) 0 % (0-3) Neutrophils # (Auto) 8.2 x10^3/uL (1.8-7.7) Lymphocytes # (Auto) 2.3 x10^3/uL (1.0-4.8) Monocytes # (Auto) 1.5 x10^3/uL (0.0-1.1) Eosinophils # (Auto) 0.1 x10^3/uL (0.0-0.7) Basophils # (Auto) 0.0 x10^3/uL (0.0-0.2) Sodium Level 131 mmol/L (136-145) Potassium Level 3.3 mmol/L (3.5-5.1) Chloride Level 96 mmol/L (98-107) Carbon Dioxide Level 25 mmol/L (21-32) Anion Gap 10 (6-14) Blood Urea Nitrogen 6 mg/dL (7-20) Creatinine 0.4 mg/dL (0.6-1.0) Estimated GFR (Cockcroft-Gault) 169.0 Glucose Level 76 mg/dL (70-99) Calcium Level 7.8 mg/dL (8.5-10.1) Comment Review of Relevant I have reviewed the following items angel (where applicable) has been applied. Medications: Current Medications Medications (Trade) Dose Ordered Sig/Abbi Route PRN Reason Start Time Stop Time Status Last Admin Dose Admin Amlodipine Besylate (Norvasc) 5 mg HS PO 01/22/21 21:00 01/22/21 21:17 Justifications for Admission Other Justification Upper GI bleed, transaminitis NICHOLAS LARSON MD Jan 23, 2021 09:19
[2021-01-23] MEDS: IV 1/2 NORMAL SALINE 1,000 ML IV SCH (09:24)
[2021-01-23] MEDS ORDERED: POTASSIUM CL 20MEQ D5-0.9%NACL 1,000 ML IV SCH (16:15)
[2021-01-23] MEDS: METOPROLOL TART IMMED RELEASE 25 MG TABLET. PO SCH (20:45)
[2021-01-24 03:00] VITALS: BP 124/81
[2021-01-24] MEDS: HYDROmorphone 2 MG/ML VIAL IV PRN ×2 (03:45→09:16)
[2021-01-24 07:00] VITALS: BP 108/63
[2021-01-24 07:34] LABS: BASO % 0 % (0-3); EOS # 0.3 x10^3/uL (0.0-0.7); EOS % 3 % (0-3); HEMATOCRIT 33.6 % (36.0-47.0); HEMOGLOBIN 11.1 g/dL (12.0-15.5); LYMPH # 2.4 x10^3/uL (1.0-4.8); LYMPH % 26 % (24-48); MEAN CORPUSCULAR HEMOGLOBIN 32 pg (25-35); MEAN CORPUSCULAR HGB CONC 33 g/dL (31-37); MEAN CORPUSCULAR VOLUME 97 fL (79-100); MONO # 1.3 x10^3/uL (0.0-1.1); MONO % 14 % (0-9); NEUT # 5.3 x10^3/uL (1.8-7.7); NEUT % 57 % (31-73); PLATELET COUNT 200 x10^3/uL (140-400); RED BLOOD COUNT 3.46 x10^6/uL (3.50-5.40); RED CELL DISTRIBUTION WIDTH 13.3 % (11.5-14.5); WHITE BLOOD COUNT 9.3 x10^3/uL (4.0-11.0)
[2021-01-24 07:46] LABS: PROTHROMBIN TIME PATIENT 11.4 SEC (11.7-14.0)
[2021-01-24 07:56] LABS: CALCIUM 8.1 mg/dL (8.5-10.1); CREATININE 0.5 mg/dL (0.6-1.0); GFR 130.6; POTASSIUM 3.8 mmol/L (3.5-5.1)
[2021-01-24 08:01] LABS: ALBUMIN 2.7 g/dL (3.4-5.0); DIRECT BILIRUBIN 0.3 mg/dL (0.0-0.2); TOTAL BILIRUBIN 0.8 mg/dL (0.2-1.0); TOTAL PROTEIN 6.2 g/dL (6.4-8.2)
[2021-01-24 08:33] VITALS: BP 108/63
[2021-01-24] MEDS: METOPROLOL TART IMMED RELEASE 25 MG TABLET. PO SCH (08:33)
[2021-01-24] MEDS: MULTIVITAMIN with MINERAL TABLET. PO SCH (08:34)
--- NOTE | 2021-01-24 09:04 | PDOC ---
SURGICAL PROGRESS NOTE DATE: 01/24/21 TIME: 09:03 Subjective Patient doing much better today less pain tolerating diet Vital Signs Vital Signs Date Time Temp Pulse Resp B/P (MAP) Pulse Ox O2 Delivery O2 Flow Rate FiO2 01/24/21 08:33 87 108/63 01/24/21 07:00 98.3 16 90 Room Air 98.3 01/23/21 20:03 10.0 I&O Intake and Output 01/24/21 07:00 Output Total 0 ml Balance 0 ml Output Urine Total 0 ml # Voids 2 PATIENT HAS A BARRERA: No General: Alert, Oriented X3, Cooperative, mild distress Abdomen: Normal bowel sounds, Soft, Other (Mild incisional tenderness wounds clean dry and intact) Labs Laboratory Tests Test 01/23/21 06:30 01/24/21 06:25 White Blood Count 12.0 x10^3/uL (4.0-11.0) 9.3 x10^3/uL (4.0-11.0) Red Blood Count 3.77 x10^6/uL (3.50-5.40) 3.46 x10^6/uL (3.50-5.40) Hemoglobin 12.0 g/dL (12.0-15.5) 11.1 g/dL (12.0-15.5) Hematocrit 36.4 % (36.0-47.0) 33.6 % (36.0-47.0) Mean Corpuscular Volume 97 fL (79-100) 97 fL (79-100) Mean Corpuscular Hemoglobin 32 pg (25-35) 32 pg (25-35) Mean Corpuscular Hemoglobin Concent 33 g/dL (31-37) 33 g/dL (31-37) Red Cell Distribution Width 13.4 % (11.5-14.5) 13.3 % (11.5-14.5) Platelet Count 199 x10^3/uL (140-400) 200 x10^3/uL (140-400) Neutrophils (%) (Auto) 68 % (31-73) 57 % (31-73) Lymphocytes (%) (Auto) 19 % (24-48) 26 % (24-48) Monocytes (%) (Auto) 12 % (0-9) 14 % (0-9) Eosinophils (%) (Auto) 0 % (0-3) 3 % (0-3) Basophils (%) (Auto) 0 % (0-3) 0 % (0-3) Neutrophils # (Auto) 8.2 x10^3/uL (1.8-7.7) 5.3 x10^3/uL (1.8-7.7) Lymphocytes # (Auto) 2.3 x10^3/uL (1.0-4.8) 2.4 x10^3/uL (1.0-4.8) Monocytes # (Auto) 1.5 x10^3/uL (0.0-1.1) 1.3 x10^3/uL (0.0-1.1) Eosinophils # (Auto) 0.1 x10^3/uL (0.0-0.7) 0.3 x10^3/uL (0.0-0.7) Basophils # (Auto) 0.0 x10^3/uL (0.0-0.2) 0.0 x10^3/uL (0.0-0.2) Sodium Level 131 mmol/L (136-145) 136 mmol/L (136-145) Potassium Level 3.3 mmol/L (3.5-5.1) 3.8 mmol/L (3.5-5.1) Chloride Level 96 mmol/L (98-107) 102 mmol/L (98-107) Carbon Dioxide Level 25 mmol/L (21-32) 28 mmol/L (21-32) Anion Gap 10 (6-14) 6 (6-14) Blood Urea Nitrogen 6 mg/dL (7-20) 5 mg/dL (7-20) Creatinine 0.4 mg/dL (0.6-1.0) 0.5 mg/dL (0.6-1.0) Estimated GFR (Cockcroft-Gault) 169.0 130.6 Glucose Level 76 mg/dL (70-99) 105 mg/dL (70-99) Calcium Level 7.8 mg/dL (8.5-10.1) 8.1 mg/dL (8.5-10.1) Prothrombin Time 11.4 SEC (11.7-14.0) Prothromb Time International Ratio 0.8 (0.8-1.1) Magnesium Level 2.1 mg/dL (1.8-2.4) Total Bilirubin 0.8 mg/dL (0.2-1.0) Direct Bilirubin 0.3 mg/dL (0.0-0.2) Aspartate Amino Transf (AST/SGOT) 25 U/L (15-37) Alanine Aminotransferase (ALT/SGPT) 29 U/L (14-59) Alkaline Phosphatase 99 U/L (46-116) Total Protein 6.2 g/dL (6.4-8.2) Albumin 2.7 g/dL (3.4-5.0) Laboratory Tests Test 01/24/21 06:25 White Blood Count 9.3 x10^3/uL (4.0-11.0) Red Blood Count 3.46 x10^6/uL (3.50-5.40) Hemoglobin 11.1 g/dL (12.0-15.5) Hematocrit 33.6 % (36.0-47.0) Mean Corpuscular Volume 97 fL (79-100) Mean Corpuscular Hemoglobin 32 pg (25-35) Mean Corpuscular Hemoglobin Concent 33 g/dL (31-37) Red Cell Distribution Width 13.3 % (11.5-14.5) Platelet Count 200 x10^3/uL (140-400) Neutrophils (%) (Auto) 57 % (31-73) Lymphocytes (%) (Auto) 26 % (24-48) Monocytes (%) (Auto) 14 % (0-9) Eosinophils (%) (Auto) 3 % (0-3) Basophils (%) (Auto) 0 % (0-3) Neutrophils # (Auto) 5.3 x10^3/uL (1.8-7.7) Lymphocytes # (Auto) 2.4 x10^3/uL (1.0-4.8) Monocytes # (Auto) 1.3 x10^3/uL (0.0-1.1) Eosinophils # (Auto) 0.3 x10^3/uL (0.0-0.7) Basophils # (Auto) 0.0 x10^3/uL (0.0-0.2) Prothrombin Time 11.4 SEC (11.7-14.0) Prothromb Time International Ratio 0.8 (0.8-1.1) Sodium Level 136 mmol/L (136-145) Potassium Level 3.8 mmol/L (3.5-5.1) Chloride Level 102 mmol/L (98-107) Carbon Dioxide Level 28 mmol/L (21-32) Anion Gap 6 (6-14) Blood Urea Nitrogen 5 mg/dL (7-20) Creatinine 0.5 mg/dL (0.6-1.0) Estimated GFR (Cockcroft-Gault) 130.6 Glucose Level 105 mg/dL (70-99) Calcium Level 8.1 mg/dL (8.5-10.1) Magnesium Level 2.1 mg/dL (1.8-2.4) Total Bilirubin 0.8 mg/dL (0.2-1.0) Direct Bilirubin 0.3 mg/dL (0.0-0.2) Aspartate Amino Transf (AST/SGOT) 25 U/L (15-37) Alanine Aminotransferase (ALT/SGPT) 29 U/L (14-59) Alkaline Phosphatase 99 U/L (46-116) Total Protein 6.2 g/dL (6.4-8.2) Albumin 2.7 g/dL (3.4-5.0) Assessment/Plan Status post Apollo doing well tolerating diet Blood pressure under better control Plan for discharge Justicifation of Admission Dx: Justifications for Admission: Justification of Admission Dx: Yes KAROLINA ANDRADE MD Jan 24, 2021 09:04
[2021-01-24] MEDS ORDERED: OXYC-325 PO (09:07)
--- NOTE | 2021-01-24 09:09 | DISCH ---
DISCHARGE INSTRUCTIONS Condition on Discharge Condition on Discharge: Stable Activity After Discharge Activity Instructions for Disc: Avoid exertion Other activity instructions: No lifting more than 20 pounds for 2-week Diet after Discharge Diet after Discharge: GI Soft Diet Texture: Regular Liquid Texture: Thin Liquid Swallowing Supervision: None needed Wound Incision Care Other wound/incision instructi: Anais kaplaner Contacting the DRHelen after DC Call your doctor for: If your condition worsens Follow-Up Follow up with: Dr. Galloway in 2 weeks Treatment/Equipment after DC Adaptive Equipment Issued: None KAROLINA ANDRADE MD Jan 24, 2021 09:09
--- NOTE | 2021-01-24 09:11 | PDOC3 ---
Discharge Summary Visit Information Date of Admission: Jan 21, 2021 Date of Discharge: Jan 24, 2021 Admitting Diagnosis Comment: Gastric esophageal reflux disease Final Diagnosis Same Brief Hospital Course Allergies Allergies Coded Allergies Type Severity Reaction Last Updated Verified avocado Allergy Unknown Swelling 01/22/21 Yes Vital Signs Vital Signs Date Time Temp Pulse Resp B/P (MAP) Pulse Ox O2 Delivery O2 Flow Rate FiO2 01/24/21 08:33 87 108/63 01/24/21 07:00 98.3 16 90 Room Air 98.3 01/23/21 20:03 10.0 Lab Results Laboratory Tests Test 01/23/21 06:30 01/24/21 06:25 White Blood Count 12.0 x10^3/uL (4.0-11.0) 9.3 x10^3/uL (4.0-11.0) Red Blood Count 3.77 x10^6/uL (3.50-5.40) 3.46 x10^6/uL (3.50-5.40) Hemoglobin 12.0 g/dL (12.0-15.5) 11.1 g/dL (12.0-15.5) Hematocrit 36.4 % (36.0-47.0) 33.6 % (36.0-47.0) Mean Corpuscular Volume 97 fL (79-100) 97 fL (79-100) Mean Corpuscular Hemoglobin 32 pg (25-35) 32 pg (25-35) Mean Corpuscular Hemoglobin Concent 33 g/dL (31-37) 33 g/dL (31-37) Red Cell Distribution Width 13.4 % (11.5-14.5) 13.3 % (11.5-14.5) Platelet Count 199 x10^3/uL (140-400) 200 x10^3/uL (140-400) Neutrophils (%) (Auto) 68 % (31-73) 57 % (31-73) Lymphocytes (%) (Auto) 19 % (24-48) 26 % (24-48) Monocytes (%) (Auto) 12 % (0-9) 14 % (0-9) Eosinophils (%) (Auto) 0 % (0-3) 3 % (0-3) Basophils (%) (Auto) 0 % (0-3) 0 % (0-3) Neutrophils # (Auto) 8.2 x10^3/uL (1.8-7.7) 5.3 x10^3/uL (1.8-7.7) Lymphocytes # (Auto) 2.3 x10^3/uL (1.0-4.8) 2.4 x10^3/uL (1.0-4.8) Monocytes # (Auto) 1.5 x10^3/uL (0.0-1.1) 1.3 x10^3/uL (0.0-1.1) Eosinophils # (Auto) 0.1 x10^3/uL (0.0-0.7) 0.3 x10^3/uL (0.0-0.7) Basophils # (Auto) 0.0 x10^3/uL (0.0-0.2) 0.0 x10^3/uL (0.0-0.2) Sodium Level 131 mmol/L (136-145) 136 mmol/L (136-145) Potassium Level 3.3 mmol/L (3.5-5.1) 3.8 mmol/L (3.5-5.1) Chloride Level 96 mmol/L (98-107) 102 mmol/L (98-107) Carbon Dioxide Level 25 mmol/L (21-32) 28 mmol/L (21-32) Anion Gap 10 (6-14) 6 (6-14) Blood Urea Nitrogen 6 mg/dL (7-20) 5 mg/dL (7-20) Creatinine 0.4 mg/dL (0.6-1.0) 0.5 mg/dL (0.6-1.0) Estimated GFR (Cockcroft-Gault) 169.0 130.6 Glucose Level 76 mg/dL (70-99) 105 mg/dL (70-99) Calcium Level 7.8 mg/dL (8.5-10.1) 8.1 mg/dL (8.5-10.1) Prothrombin Time 11.4 SEC (11.7-14.0) Prothromb Time International Ratio 0.8 (0.8-1.1) Magnesium Level 2.1 mg/dL (1.8-2.4) Total Bilirubin 0.8 mg/dL (0.2-1.0) Direct Bilirubin 0.3 mg/dL (0.0-0.2) Aspartate Amino Transf (AST/SGOT) 25 U/L (15-37) Alanine Aminotransferase (ALT/SGPT) 29 U/L (14-59) Alkaline Phosphatase 99 U/L (46-116) Total Protein 6.2 g/dL (6.4-8.2) Albumin 2.7 g/dL (3.4-5.0) Laboratory Tests Test 01/24/21 06:25 White Blood Count 9.3 x10^3/uL (4.0-11.0) Red Blood Count 3.46 x10^6/uL (3.50-5.40) Hemoglobin 11.1 g/dL (12.0-15.5) Hematocrit 33.6 % (36.0-47.0) Mean Corpuscular Volume 97 fL (79-100) Mean Corpuscular Hemoglobin 32 pg (25-35) Mean Corpuscular Hemoglobin Concent 33 g/dL (31-37) Red Cell Distribution Width 13.3 % (11.5-14.5) Platelet Count 200 x10^3/uL (140-400) Neutrophils (%) (Auto) 57 % (31-73) Lymphocytes (%) (Auto) 26 % (24-48) Monocytes (%) (Auto) 14 % (0-9) Eosinophils (%) (Auto) 3 % (0-3) Basophils (%) (Auto) 0 % (0-3) Neutrophils # (Auto) 5.3 x10^3/uL (1.8-7.7) Lymphocytes # (Auto) 2.4 x10^3/uL (1.0-4.8) Monocytes # (Auto) 1.3 x10^3/uL (0.0-1.1) Eosinophils # (Auto) 0.3 x10^3/uL (0.0-0.7) Basophils # (Auto) 0.0 x10^3/uL (0.0-0.2) Prothrombin Time 11.4 SEC (11.7-14.0) Prothromb Time International Ratio 0.8 (0.8-1.1) Sodium Level 136 mmol/L (136-145) Potassium Level 3.8 mmol/L (3.5-5.1) Chloride Level 102 mmol/L (98-107) Carbon Dioxide Level 28 mmol/L (21-32) Anion Gap 6 (6-14) Blood Urea Nitrogen 5 mg/dL (7-20) Creatinine 0.5 mg/dL (0.6-1.0) Estimated GFR (Cockcroft-Gault) 130.6 Glucose Level 105 mg/dL (70-99) Calcium Level 8.1 mg/dL (8.5-10.1) Magnesium Level 2.1 mg/dL (1.8-2.4) Total Bilirubin 0.8 mg/dL (0.2-1.0) Direct Bilirubin 0.3 mg/dL (0.0-0.2) Aspartate Amino Transf (AST/SGOT) 25 U/L (15-37) Alanine Aminotransferase (ALT/SGPT) 29 U/L (14-59) Alkaline Phosphatase 99 U/L (46-116) Total Protein 6.2 g/dL (6.4-8.2) Albumin 2.7 g/dL (3.4-5.0) Brief Hospital Course Ms. Luna is a 50 old female who who presented for a laparoscopic Apollo fundoplication she underwent her procedure without any difficulties her postoperative course was quite unremarkable other than some upper shoulder and back pain postoperatively she did quite well is now tolerating diet pain is much improved and being discharged to home in stable condition Assessment Assessment Stable Discharge Information Condition at Discharge: Improved Follow Up: Weeks Disposition/Orders: D/C to Home Scheduled Metoprolol Succinate (Metoprolol Succinate ( Xl )) 25 Mg Tab.er.24h, 25 MG PO BID for FOR HYPERTENSION, #30 Ref 0 (Reported) Entered as Reported by: RUBA ROME on 01/20/21 0832 Last Taken: Unknown Dose on 01/21/21 0500 Last Action: Continued on 01/21/21 1050 by INGRID MICHEL Multivitamin (Multiple Vitamins) 1 Each Tablet, 1 EACH PO DAILY for supplement, (Reported) Entered as Reported by: RUBA ROME on 01/20/21 0833 Last Taken: Unknown Dose on 01/19/21 Last Action: Converted on 01/21/21 1050 by INGRID MICHEL Multivitamin With Minerals (Hair, Skin & Nails) 1 Each Tablet, 1 EACH PO DAILY for supplement, (Reported) Entered as Reported by: RUBA ROME on 01/20/21832 Last Taken: Unknown Dose on 01/19/21 Last Action: HELD on 01/21/21 105 by INGRID MICHEL Omeprazole (Omeprazole) 20 Mg Capsule.dr, 20 MG PO HS for CONTROL REFLUX, (Reported) Entered as Reported by: RUBA ROME on 01/20/21 0832 Last Taken: Unknown Dose on 01/20/21 Last Action: HELD on 01/21/21 105 by INGRID MICHEL Rabeprazole Sodium (Aciphex) 20 Mg Tablet.dr, 20 MG PO DAILY for stomach, (Reported) Entered as Reported by: RUBA ROME on 01/20/21832 Last Taken: Unknown Dose on 01/21/21 0500 Last Action: HELD on 01/21/21 105 by INGRID MICHEL Scheduled PRN Oxycodone HCl/Acetaminophen (Percocet 5-325 mg Tablet) 1 Each Tablet, 1 TAB PO Q 6HRS PRN for PAIN MDD 4 Tablet(s) for 5 Days, #20 Ref 0 Prescribed by: Waylon Kidd on 01/24/21 0908 Justicifation of Admission Dx: Justifications for Admission: Justification of Admission Dx: Yes WAYLON KIDD MD Jan 24, 2021 09:11
--- NOTE | 2021-01-24 10:33 | NUR ---
Patient discharge home with self care today, via wheelchair, accompanied by aid and parents. Patient is stable, IV removed, and discharge paperwork given to patient. Patient verbalized understanding of followup and discharge instruction.
== END 2021-01-24 10:46 | disposition home or self-care (01) ==
LOC: SURG 06:11 → 4 NORTH 10:47
PROVIDERS: ADMIT Surgery; ATTEND Surgery
DX: K44.9 Diaphragmatic hernia without obstruction or gangrene (principal); K21.9 Gastro-esophageal reflux disease without esophagitis; I10 Essential (primary) hypertension; K22.70 Barrett's esophagus without dysplasia; I97.3 Postprocedural hypertension; F10.10 Alcohol abuse, uncomplicated; K76.6 Portal hypertension; R74.01 Elevation of levels of liver transaminase levels; R16.0 Hepatomegaly, not elsewhere classified; Z79.899 Other long term (current) drug therapy; Z98.890 Other specified postprocedural states
CPT/HCPCS: 36415; 43280; 80048; 80076; 81025; 83735; 85025; 85610; 96374; 96376; A4209; A4215; A4314; A4364; A4930; G0378; G0379; J0690; J0780; J1100; J1170; J1200; J2250; J2270; J2370; J2704; J2710; J3010; J3480; J3490; A4223; A4452; J2405